=== PATIENT | female | born 1995 | race Caucasian/White ===

== ENCOUNTER 2017-04-26 21:23 | Emergency (ER) | payer OTHER ==
[2017-04-26 21:31] VITALS: BP 125/65
[2017-04-26] MEDS ORDERED: Ibuprofen TAB* 600 MG PO ONE (22:02)
--- NOTE | 2017-04-26 22:05 | UC ---
Throat Pain/Nasal Matthew HPI - HPI Summary HPI Summary: 22 yo female with 3 hours of fever/chills/sore throat/runny nose/sinus pressure and severe myalgias no UTI symptoms - History of Current Complaint Chief Complaint: UCRespiratory Stated Complaint: FLU SYMPTOMS Time Seen by Provider: 04/26/17 21:58 Hx Obtained From: Patient Hx Last Menstrual Period: now Onset/Duration: Sudden Onset, Lasting Hours Severity: Severe Pain Intensity: 7 Pain Scale Used: 0-10 Numeric Cough: None Associated Signs & Symptoms: Positive: Fever - Allergies/Home Medications Allergies/Adverse Reactions: Allergies Allergy/AdvReac Type Severity Reaction Status Date / Time No Known Allergies Allergy Verified 04/26/17 21:31 PMH/Surg Hx/FS Hx/Imm Hx Previously Healthy: Yes - Surgical History Surgical History: None - Family History Known Family History: Positive: Hypertension - Social History Alcohol Use: None Substance Use Type: None Smoking Status (MU): Never Smoked Tobacco Review of Systems Constitutional: Fever, Chills, Fatigue Skin: Negative Eyes: Negative ENT: Sore Throat, Nasal Discharge, Sinus Congestion Respiratory: Negative Cardiovascular: Negative Gastrointestinal: Negative Genitourinary: Negative Motor: Negative Neurovascular: Negative Musculoskeletal: Myalgia Neurological: Headache Psychological: Negative Is Patient Immunocompromised?: No All Other Systems Reviewed And Are Negative: Yes Physical Exam Triage Information Reviewed: Yes Appearance: Well-Appearing, No Pain Distress, Well-Nourished Vital Signs: Initial Vital Signs Temp 100.7 F 04/26/17 21:29 Pulse 103 04/26/17 21:29 Resp 12 04/26/17 21:29 BP 125/65 04/26/17 21:29 Pulse Ox 100 04/26/17 21:29 Eyes: Positive: Conjunctiva Clear ENT: Positive: Hearing grossly normal, Pharyngeal erythema, Nasal congestion, TMs normal, Uvula midline. Negative: Tonsillar swelling, Tonsillar exudate, Trismus, Muffled voice, Hoarse voice, Dental tenderness, Sinus tenderness Neck: Positive: Supple, Nontender, No Lymphadenopathy Respiratory: Positive: Lungs clear, Normal breath sounds, No respiratory distress, No accessory muscle use Cardiovascular: Positive: RRR, No Murmur Musculoskeletal: Positive: ROM Intact, No Edema Neurological: Positive: Alert Psychological Exam: Normal Skin Exam: Normal Throat Pain/Nasal Course/Dx - Differential Dx/Diagnosis Provider Diagnoses: influenza like illness Discharge - Discharge Plan Condition: Stable Disposition: HOME Patient Education Materials: Viral Syndrome (ED) Referrals: [facility] [Primary Care Provider] - 4 Days (if not better) Additional Instructions: rest fluids tylenol or advil for fever/pain recheck for new symptoms-bella bad cough or shortness of breath strep and flu tests negative
== END 2017-04-26 22:40 | disposition home or self-care (01) ==
LOC: UCEAST 21:23
DX: R69 Illness, unspecified (principal)
CPT/HCPCS: 87502; 87651; 99212; A9270-GY; G0463